=== PATIENT | female | born 1990 | race Caucasian/White ===

== ENCOUNTER 2018-07-24 09:47 | Outpatient (CLI) | payer OTHER ==
[~2018-07-24 09:47] MED LIST: AMOX1TAB12 PO; FIORICET 50-301 EACH PO; GILTUSS TR TAB1 EACH PO; NASONEX17 GM; PRILOSEC20 MG PO; ROCEPHIN IM; ZITHROMAX1 G/PKT PO; ZYRTEC10 MG PO
== END 2018-07-24 09:51 | disposition home or self-care (01) ==
LOC: RAD 09:47
DX: M54.2 Cervicalgia (principal)

== ENCOUNTER 2019-05-06 09:12 | Outpatient (CLI) | payer OTHER | END 2019-05-06 09:16 | disposition home or self-care (01) | LOC: LAB 09:12 | DX: E03.8 Other specified hypothyroidism (principal); E11.8 Type 2 diabetes mellitus with unspecified complications; I10 Essential (primary) hypertension; M79.605 Pain in left leg ==

== ENCOUNTER 2019-09-30 11:57 | Outpatient (CLI) | payer OTHER | END 2019-09-30 12:02 | disposition home or self-care (01) | LOC: LAB 11:57 | DX: J11.1 Influenza due to unidentified influenza virus with other respiratory manifestations (principal) ==

== ENCOUNTER 2019-10-22 09:05 | Outpatient (CLI) | payer OTHER | END 2019-10-22 09:07 | disposition home or self-care (01) | LOC: RAD 09:05 | DX: R05 Cough (principal) ==

== ENCOUNTER 2019-12-10 11:40 | Emergency (ER) | payer OTHER ==
[~2019-12-10] VITALS: Ht 162.6 cm; Wt 45.4 kg
== END 2019-12-10 12:21 | disposition home or self-care (01) ==
LOC: ER 11:40
DX: S61.227A Laceration with foreign body of left little finger without damage to nail, initial encounter (principal); W27.2XXA Contact with scissors, initial encounter; Y93.89 Activity, other specified; Y92.89 Other specified places as the place of occurrence of the external cause; Y99.8 Other external cause status

== ENCOUNTER 2020-03-02 08:59 | Outpatient (CLI) | payer OTHER | END 2020-03-02 09:07 | disposition home or self-care (01) | LOC: SONOGRAMA 08:59 | DX: K80.00 Calculus of gallbladder with acute cholecystitis without obstruction (principal) ==

== ENCOUNTER → 2020-07-25 15:00 | Outpatient (CLI) | payer OTHER | END | disposition home or self-care (01) | LOC: PPH VACUNA 15:00 | DX: Z23 Encounter for immunization (principal) ==

== ENCOUNTER 2020-10-21 19:04 | Emergency (ER) | payer OTHER ==
[~2020-10-21] VITALS: Ht 162.6 cm; Wt 47.2 kg
[2020-10-21] MEDS ORDERED: ADVIL (20:00)
[2020-10-21] MEDS ORDERED: DICLOFENAC SODI75 MG PO (20:49)
== END 2020-10-21 21:49 | disposition home or self-care (01) ==
LOC: ER 19:04
DX: S60.211A Contusion of right wrist, initial encounter (principal); W22.8XXA Striking against or struck by other objects, initial encounter; Y93.89 Activity, other specified; Y92.098 Other place in other non-institutional residence as the place of occurrence of the external cause

== ENCOUNTER 2021-01-12 07:33 | Outpatient (CLI) | payer OTHER ==
[~2021-01-12 07:33] MED LIST changes: +ADVIL; +DICLOFENAC SODI75 MG PO
== END 2021-01-12 07:40 | disposition home or self-care (01) ==
LOC: RAD 07:33
PROVIDERS: ATTEND General Practice
DX: M62.838 Other muscle spasm (principal); M62.830 Muscle spasm of back

== ENCOUNTER 2021-04-09 06:37 | Emergency (ER) | payer OTHER ==
[~2021-04-09] VITALS: Ht 165.1 cm; Wt 47.6 kg
[2021-04-09] MEDS ORDERED: DICLOFENAC SODI75 MG PO (06:50)
== END 2021-04-09 07:13 | disposition home or self-care (01) ==
LOC: ER 06:37
DX: M54.5 Low back pain (principal); M54.2 Cervicalgia; B96.0 Mycoplasma pneumoniae [M. pneumoniae] as the cause of diseases classified elsewhere

== ENCOUNTER 2021-06-19 08:00 | Outpatient (CLI) | payer OTHER | END 2021-06-19 08:30 | disposition home or self-care (01) | LOC: PPH VACUNA 08:00 | PROVIDERS: ATTEND Emergency Medicine Pediatric Emergency Medicine | DX: Z23 Encounter for immunization (principal) ==

== ENCOUNTER 2021-08-02 07:39 | Outpatient (CLI) | payer OTHER | END 2021-08-02 07:44 | disposition home or self-care (01) | LOC: SONOGRAMA 07:39 | PROVIDERS: ATTEND Specialist | DX: N64.4 Mastodynia (principal) ==

== ENCOUNTER 2021-08-07 08:00 | Outpatient (CLI) | payer OTHER | END 2021-08-07 08:30 | disposition home or self-care (01) | LOC: PPH VACUNA 08:00 | PROVIDERS: ATTEND Emergency Medicine Pediatric Emergency Medicine | DX: Z23 Encounter for immunization (principal) ==

== ENCOUNTER 2021-11-25 06:02 | Emergency (ER) | payer OTHER ==
[~2021-11-25] VITALS: Ht 162.6 cm; Wt 48.1 kg
[2021-11-25] MEDS ORDERED: ACETAMINOPHEN650 M2 PO (06:59)
[2021-11-25] MEDS ORDERED: MUCINEX DM ER1 EACH PO (06:59)
[2021-11-25] MEDS ORDERED: AZITHROMYCIN500 MG PO (06:59)
== END 2021-11-25 07:18 | disposition home or self-care (01) ==
LOC: ER 06:02
DX: A49.3 Mycoplasma infection, unspecified site (principal); Z91.013 Allergy to seafood; Z88.0 Allergy status to penicillin

== ENCOUNTER 2022-01-05 07:55 | Outpatient (CLI) | payer OTHER ==
[~2022-01-05 07:55] MED LIST changes: +ACETAMINOPHEN650 M2 PO; +AZITHROMYCIN500 MG PO; +MUCINEX DM ER1 EACH PO
== END 2022-01-05 07:58 | disposition home or self-care (01) ==
LOC: SONOGRAMA 07:55
PROVIDERS: ATTEND General Practice
DX: R10.10 Upper abdominal pain, unspecified (principal)

== ENCOUNTER 2022-03-01 06:51 | Emergency (ER) | payer OTHER ==
[~2022-03-01] VITALS: Ht 165.1 cm; Wt 49.9 kg
== END 2022-03-01 10:16 | disposition home or self-care (01) ==
LOC: ER 06:51
DX: N39.0 Urinary tract infection, site not specified (principal); R53.81 Other malaise; R10.13 Epigastric pain; Z20.822 Contact with and (suspected) exposure to COVID-19; Z88.0 Allergy status to penicillin; Z91.013 Allergy to seafood

== ENCOUNTER → 2022-04-08 | Emergency (ER) | payer OTHER ==
[~2022-04-08] VITALS: Ht 165.1 cm; Wt 54.0 kg
== END | disposition home or self-care (01) ==
LOC: ER 03:45
DX: T75.89XA Other specified effects of external causes, initial encounter (principal); X58.XXXA Exposure to other specified factors, initial encounter; Z88.0 Allergy status to penicillin; Z91.013 Allergy to seafood; Z91.041 Radiographic dye allergy status; Y93.F9 Activity, other caregiving; Y92.230 Patient room in hospital as the place of occurrence of the external cause

== ENCOUNTER 2022-04-10 05:33 | Emergency (ER) | payer OTHER ==
[~2022-04-10] VITALS: Ht 165.1 cm; Wt 54.0 kg
== END 2022-04-10 07:09 | disposition home or self-care (01) ==
LOC: ER 05:33
DX: Z77.21 Contact with and (suspected) exposure to potentially hazardous body fluids (principal); Z88.8 Allergy status to other drugs, medicaments and biological substances; Z88.0 Allergy status to penicillin; Z91.013 Allergy to seafood

== ENCOUNTER 2022-04-18 08:00 | Outpatient (CLI) | payer OTHER | END 2022-04-18 08:05 | disposition home or self-care (01) | LOC: PPH VACUNA 08:00 | PROVIDERS: ATTEND Emergency Medicine Pediatric Emergency Medicine | DX: Z23 Encounter for immunization (principal) ==

== ENCOUNTER 2022-08-22 10:38 | Outpatient (CLI) | payer OTHER | END 2022-08-22 10:40 | disposition home or self-care (01) | LOC: LAB 10:38 | PROVIDERS: ATTEND Radiology Diagnostic Radiology | DX: R41.3 Other amnesia (principal) ==

== ENCOUNTER 2022-08-23 09:50 | Outpatient (CLI) | payer OTHER | END 2022-08-23 09:56 | disposition home or self-care (01) | LOC: SONOGRAMA 09:50 | PROVIDERS: ATTEND Student in an Organized Health Care Education/Training Program | DX: N64.4 Mastodynia (principal); Z12.31 Encounter for screening mammogram for malignant neoplasm of breast ==

== ENCOUNTER 2022-08-27 07:26 | Outpatient (CLI) | payer OTHER | END 2022-08-27 07:34 | disposition home or self-care (01) | LOC: MRI 07:26 | PROVIDERS: ATTEND Neuromusculoskeletal Medicine & OMM | DX: R41.3 Other amnesia (principal); D49.6 Neoplasm of unspecified behavior of brain | CPT/HCPCS: 70553 ==

== ENCOUNTER 2022-11-01 00:44 | Emergency (ER) | payer OTHER ==
[~2022-11-01] VITALS: Ht 162.6 cm; Wt 54.4 kg
[2022-11-01] MEDS ORDERED: LEVSIN/SL0.125 MG SL (05:58)
[2022-11-01] MEDS ORDERED: PEPCID40 MG PO (05:58)
[2022-11-01] MEDS ORDERED: PROTONIX40 MG PO (05:58)
[2022-11-01] MEDS ORDERED: PHAZYME500 MG PO (05:58)
== END 2022-11-01 06:02 | disposition home or self-care (01) ==
LOC: ER 00:44
DX: K29.70 Gastritis, unspecified, without bleeding (principal); Z88.0 Allergy status to penicillin; Z91.013 Allergy to seafood; Z91.041 Radiographic dye allergy status

== ENCOUNTER 2022-11-15 21:54 | Emergency (ER) | payer OTHER ==
[~2022-11-15] VITALS: Ht 162.6 cm; Wt 53.5 kg
[~2022-11-15 21:54] MED LIST changes: +LEVSIN/SL0.125 MG SL; +PEPCID40 MG PO; +PHAZYME500 MG PO; +PROTONIX40 MG PO
== END 2022-11-15 22:33 | disposition home or self-care (01) ==
LOC: ER 21:54
DX: T78.40XA Allergy, unspecified, initial encounter (principal); Z88.0 Allergy status to penicillin; Z91.041 Radiographic dye allergy status; Z91.013 Allergy to seafood

== ENCOUNTER 2022-11-22 07:30 | Outpatient (CLI) | payer OTHER | END 2022-11-22 07:47 | disposition home or self-care (01) | LOC: LAB 07:30 | PROVIDERS: ATTEND Neuromusculoskeletal Medicine & OMM | DX: R41.89 Other symptoms and signs involving cognitive functions and awareness (principal); R41.3 Other amnesia; E03.9 Hypothyroidism, unspecified; F03.90 Unspecified dementia, unspecified severity, without behavioral disturbance, psychotic disturbance, mood disturbance, and anxiety; E78.00 Pure hypercholesterolemia, unspecified; E78.1 Pure hyperglyceridemia; M92.9 Juvenile osteochondrosis, unspecified; G62.9 Polyneuropathy, unspecified; R20.2 Paresthesia of skin; E11.9 Type 2 diabetes mellitus without complications ==

== ENCOUNTER 2022-12-11 09:33 | Outpatient (CLI) | payer OTHER | END 2022-12-11 09:34 | disposition home or self-care (01) | LOC: LAB 09:33 | PROVIDERS: ATTEND General Practice | DX: R05.9 Cough, unspecified (principal); U07.1 COVID-19; R50.9 Fever, unspecified; R06.02 Shortness of breath ==

== ENCOUNTER 2023-01-22 09:43 | Outpatient (CLI) | payer OTHER | END 2023-01-22 09:46 | disposition home or self-care (01) | LOC: LAB 09:43 | PROVIDERS: ATTEND General Practice | DX: J03.90 Acute tonsillitis, unspecified (principal) ==

== ENCOUNTER 2023-03-11 07:54 | Outpatient (CLI) | payer OTHER | END 2023-03-11 07:56 | disposition home or self-care (01) | LOC: SONOGRAMA 07:54 | PROVIDERS: ATTEND General Practice | DX: N61.0 Mastitis without abscess (principal); N60.29 Fibroadenosis of unspecified breast ==

== ENCOUNTER 2023-04-02 07:14 | Outpatient (CLI) | payer OTHER | END 2023-04-02 07:15 | disposition home or self-care (01) | LOC: LAB 07:14 | DX: K21.9 Gastro-esophageal reflux disease without esophagitis (principal) ==

== ENCOUNTER → 2023-04-10 06:19 | Outpatient (CLI) | payer OTHER | END | disposition home or self-care (01) | LOC: LAB 06:19 | DX: R30.0 Dysuria (principal); N39.498 Other specified urinary incontinence; Z88.0 Allergy status to penicillin; Z91.041 Radiographic dye allergy status; Z91.013 Allergy to seafood ==

== ENCOUNTER 2023-07-19 08:48 | Emergency (ER) | payer OTHER ==
[~2023-07-19] VITALS: Ht 162.6 cm; Wt 52.2 kg
[2023-07-19 09:16] LABS: MEAN CORPUSCULAR HGB CONC 34.9 g/dl (32.0-36.0); PLATELET COUNT 304 K/uL (150-450); RED BLOOD COUNT 5.01 M/uL (4.00-6.00); RED CELL DISTRIBUTION WIDTH 13.6 % (11.5-14.5)
[2023-07-19 09:56] LABS: ALBUMIN 4.4 gm/dL (3.4-5.0); BILIRUBIN TOTAL 0.86 mg/dL (0.3-1.2); CALCIUM 9.5 mg/dL (8.5-10.1); CREATININE SERUM 0.81 mg/dL (0.55-1.02); GFR 81.94; GLOBULINA 3.9 G/DL (2.4-3.5); POTASSIUM 3.23 mEq/L (3.5-5.1); TOTAL PROTEIN 8.3 gm/dL (6.4-8.2)
[2023-07-19 10:18] LABS: ABG PH 7.374 (7.35-7.45); ABG PO2 81.1 mmHg (80-100); ABG pCO2 42.7 mmHg (35-45); BASE EXCESS -0.9 mmol/l; BICARBONATE 24.4 mmol/l (23-25); Tco2 25.7 mmol/l; allen test SATISFACTORY; o2 21 %; puncture site BRADIAL RIGHT
[2023-07-19 10:19] LABS: SaO2 95.5 %
== END 2023-07-19 11:22 | disposition home or self-care (01) ==
LOC: ER 08:49
PROVIDERS: Emergency Medicine
DX: K29.70 Gastritis, unspecified, without bleeding (principal); J22 Unspecified acute lower respiratory infection; Z20.822 Contact with and (suspected) exposure to COVID-19; Z91.041 Radiographic dye allergy status; Z88.0 Allergy status to penicillin; Z91.013 Allergy to seafood

== ENCOUNTER 2023-11-10 07:02 | Emergency (ER) | payer OTHER ==
[~2023-11-10] VITALS: Ht 162.6 cm; Wt 51.3 kg
[2023-11-10] MEDS ORDERED: KETOROLAC TROMETHAMINE 10 MG TABLET PO ONE (07:45)
== END 2023-11-10 10:13 | disposition home or self-care (01) ==
LOC: ER 07:02
DX: N83.209 Unspecified ovarian cyst, unspecified side (principal); R10.2 Pelvic and perineal pain; Z88.0 Allergy status to penicillin; Z88.1 Allergy status to other antibiotic agents; Z91.013 Allergy to seafood; Z91.041 Radiographic dye allergy status

== ENCOUNTER → 2023-11-12 07:18 | Outpatient (CLI) | payer OTHER ==
[2023-11-12 08:20] LABS: PH,URINE 6.5 (5.0-8.0); URINE APPEARANCE Clear; URINE BILIRRUBIN Negative (NEGATIVE); URINE BLOOD Small; URINE COLOR Yellow; URINE GLUCOSE Negative (NEGATIVE); URINE LEUKOCYTE Negative; URINE NITRATE Negative; URINE PROTEIN Negative (NEGATIVE)
[2023-11-12 08:24] LABS: URINE BACTERIA 18.8 uL (0.0-1933); URINE EPITHELIAL CELLS 2.4 uL (0.0-38.8); URINE RBC 39.5 uL (0.0-20.8)
[2023-11-12 08:32] LABS: URINE WBC 0.4 uL (0.0-23.2)
== END | disposition home or self-care (01) ==
LOC: LAB 07:18
PROVIDERS: ATTEND Student in an Organized Health Care Education/Training Program
DX: N83.201 Unspecified ovarian cyst, right side (principal); R30.0 Dysuria